=== PATIENT | male | born 1970 | race Hispanic/Latino ===

== ENCOUNTER 2018-03-02 12:40 | Outpatient (CLI) | payer BC ==
[2018-03-02 14:04] LABS: #Basophils 0.1 thou/uL (0.0-0.2); #Eosinphils 0.1 thou/uL (0.0-0.7); #Lymphocytes 1.9 thou/uL (1.20-3.40); #Monocytes 0.6 thou/uL (0.11-0.59); #Neutrophils 5.3 thou/uL (1.40-6.50); %Basophils 0.7 % (0.0-1.0); %Eosinophils 1.9 % (0.0-10.0); %Monocytes 7.1 % (0.0-10.0); %Neutrophils 66.2 % (42.0-75.0); Hemoglobin 16.6 g/dL (14.0-18.0); Mean Corpuscular HGB CONC 35.1 g/dL (32.0-36.0); Mean Corpuscular Hemoglobin 31.1 pg (27.0-31.0); Mean Corpuscular Volume 88.4 fl (80.0-94.0); Mean Platelet Volume 7.4 fL (7.4-10.4); Platelet Count 290 thou/uL (130-400); RBC Distribution Width 12.5 % (11.5-14.5); Red Blood Cell (RBC) Count 5.35 mill/uL (4.70-6.10)
[2018-03-02 14:25] LABS: Anion Gap 10 mmol/L (10-20); BUN (Urea Nitrogen) 12 mg/dL (8.9-20.6); Calc. Creatinine Clearance 0 mL/min (70-130); Calcium 9.6 mg/dL (7.8-10.44); Carbon Dioxide 27 mmol/L (22-29); Chloride 105 mmol/L (98-107); Estimated GFR-MDRD Greater than 90; Glucose 82 mg/dL (70-105); Potassium 3.9 mmol/L (3.5-5.1); Sodium 138 mmol/L (136-145)
== END 2018-03-02 12:41 | disposition home or self-care (01) ==
LOC: LABBT 12:40
PROVIDERS: ATTEND Surgery
DX: Z01.818 Encounter for other preprocedural examination (principal); K44.0 Diaphragmatic hernia with obstruction, without gangrene
CPT/HCPCS: 80048; 85025; 93005; 93010

== ENCOUNTER 2018-03-04 05:58 | Observation (INO) | payer BC ==
[2018-03-04] MEDS ORDERED: CEFAZOLIN/Water 2 GM/20 ML SYRINGE ONE (06:08)
[2018-03-04] MEDS ORDERED: Bupivacaine/Epinephrine 0.25% 30 ML VIAL ONE ×3 (06:34→09:28)
[2018-03-04] MEDS ORDERED: Fentanyl 100 MCG/2 ML VIAL ONE (06:51)
--- NOTE | 2018-03-04 10:43 | OP ---
DATE OF PROCEDURE: 03/04/2018 PREOPERATIVE DIAGNOSIS: 1. Acquired gastric outlet obstruction. 2. Severe dysphagia. 3. Moderate sized paraesophageal hiatal hernia. POSTOPERATIVE DIAGNOSES: 1. Acquired gastric outlet obstruction. 2. Severe dysphagia. 3. Moderate sized paraesophageal hiatal hernia. PROCEDURE: 1. Laparoscopic removal of lap band and subcutaneous port. 2. Laparoscopic hiatal hernia repair paraesophageal without fundoplication. 3. Chest tube. SURGEON: Butch Luo M.D. ANESTHESIA: General. ESTIMATED BLOOD LOSS: 50 mL. COMPLICATIONS: None. INDICATION: The patient is a 47-year-old male who presents with severe dysphagia. Barium swallow re vealed evidence of prolapse of his lap band as well as a moderate sized hiatal hernia. Risks and nilam efits of hiatal hernia repair and lap band removal were discussed. He gave consent. TECHNIQUE: The patient was taken to the operating room and placed supine on the table. After genera l anesthetic was obtained, an OG tube was used to decompress the stomach. The abdomen was shaved, pr epped, and draped in a sterile fashion. Left subcostal 5-mm Optiview trocar was placed in usual formerly [facility] ion. High-flow pneumoperitoneum was obtained. A 5 mm port is placed just above the umbilicus, 5-mm port is placed in the right lower quadrant, 5 mm port is placed just to the patient's right of the xi phoid, 8 mm port placed to the left of the xiphoid. The patient was placed in reverse Trendelenburg position. The 5 mm lateral subcostal port was switched out to a 12-mm port. Cautery was used to inc ise the scar tissue over the lap band cuff. The lap band is able to be unbuckled. Dissection is the n performed to dissect the lap band and stomach off of the liver. A liver retractor was then placed exposing the GE junction. Short gastric were taken down from mid body of stomach to left alejandra of lor phragm. Left alejandra, fundus of the stomach, angle of His was completely dissected without injury. The bare area of the stomach is on the gastrohepatic ligament is opened, the right alejandra found and medias tinum entered just medial to the right alejandra. A circumferential dissection of the esophagus is perfor med, allowing the GE junction, a pullback down into the abdominal cavity without tension. There was significant scar tissue in this area from previous lap band. The fundus of the stomach had been sewn over the top of the band. The sutures are cut and the fundus of the stomach, placed back in its pro per position. On dissection to the patient's left, the pleural space was entered secondary to severe scar tissue; however, the patient was hemodynamically stable during the entire procedure. Two Ethib ond sutures and the tie knot system were used to close the fascial defect posteriorly after a 38 boug ie was brought in and its tip left in the antrum of the stomach. Because of the patient's mid esopha milo that was seen on preoperative barium swallow the decision was made not to perform fundoplication in order to not increase his dysphagia. He had no preop gastroesophageal reflux symptoms. EGD scope was passed into the esophagus, stomach to the level of duodenum without obstruction. There was no i njury to the stomach. There is mild inflammatory change at the GE junction. No significant stenosis on passing the scope through the esophageal hiatus. EGD scope was used to decompress the stomach, i t was pulled and removed. The 12-mm port site is closed using a GraNee needle 0 Vicryl tie. The lap band tubing is cut and the lap band around the stomach is removed from this incision. It is able to be reformed on the back table in its entirety without missing piece. All port sites are infiltrated using local anesthetic. The liver retractor and all ports are removed under direct visualization wi thout injury, pneumoperitoneum was let down. The Vicryl sutures used to close the fascial defect fro m the 12-mm port site. Incision is opened over the port and the port is removed by dissecting off of the anterior abdominal wall. All incisions then closed using 3-0 Vicryl, 4-0 Monocryl, and Dermabon d. Upon attempting extubation, anesthesia notes difficulty with tidal volumes, decreased oxygen satu rations and his O2 sats started to drop. He was hemodynamically stable, not tachycardic with a chaz l blood pressure. He did not have breath sounds on the left. Decision was made to not wait for ches t x-ray and go ahead and place chest tube in the operating room. Left chest is prepped and draped in a sterile fashion. Incision was made at the level of the nipple and a 28 chest tube was placed in t he usual fashion, sewn in place using a heavy silk suture, connected to a Pleur-Evac. There was a ru sh of air upon placement. The patient had return and breath sounds. En route to recovery extubated in stable condition. The p atient en route to recovery in stable condition. All instrument counts, needle counts, lap counts ar e correct.
--- NOTE | 2018-03-04 11:28 | RAD ---
CHEST ONE VIEW: HISTORY: Chest tube placement. COMPARISON: None. FINDINGS: The cardiac silhouette is magnified by projection. Shallow inspiration accentuates pulmonary marking s. Left thoracostomy tube over the left lateral chest descends to the left posterior medial lung bas e. No significant pneumothorax is apparent on this portable semiupright exam. The mediastinum is mi dline. IMPRESSION: Left thoracostomy tube in good radiographic position. POS: [facility]
[2018-03-04] MEDS ORDERED: Promethazine HCl 25 MG/ML VIAL IM PRN (11:54)
[2018-03-04] MEDS ORDERED: Dextrose 5% in Water 1,000 ML IV PRN (11:54)
[2018-03-04] MEDS ORDERED: Ondansetron HCl/PF 4 MG/2 ML Vial IVP PRN (11:54)
[2018-03-04] MEDS ORDERED: Dextrose 50% Abboject 50 ML SYRINGE SLOW IVP PRN (11:54)
[2018-03-04] MEDS ORDERED: PROVENTIL INHALER 6.7 G (200 INHALATIONS) INH PRN (11:54)
[2018-03-04] MEDS ORDERED: hydrALAZINE 20 MG/ML VIAL SLOW IVP PRN (11:54)
[2018-03-04] MEDS: Sodium Chloride 0.9% 1,000 ML IV SCH ×2 (12:05→21:11)
[2018-03-04] MEDS: Hydrocodone-Acetamin 15 ML UDCUP PO PRN ×2 (13:00→21:22)
[2018-03-04 14:19] VITALS: BMI 36.3
[2018-03-04] MEDS ORDERED: PROPOFOL 200 MG/20 ML VIAL ONE (14:24)
[2018-03-04] MEDS ORDERED: Dexamethasone 20 MG/5 ML VIAL ONE (14:24)
[2018-03-04] MEDS ORDERED: Ketorolac Tromethamine 30 MG/ML VIAL ONE (14:24)
[2018-03-04] MEDS ORDERED: Glycopyrrolate 0.2 MG/ML 5 ML SYRINGE ONE (14:24)
[2018-03-04] MEDS ORDERED: Ondansetron HCl/PF 4 MG/2 ML Vial ONE (14:24)
[2018-03-04] MEDS ORDERED: Lidocaine 1% PF 5 ML VIAL ONE (14:24)
[2018-03-04] MEDS ORDERED: Vecuronium 10 MG VIAL ONE (14:24)
[2018-03-05 05:21] LABS: #Lymphocytes 1.9 thou/uL (1.20-3.40); #Monocytes 1.2 thou/uL (0.11-0.59); #Neutrophils 11.3 thou/uL (1.40-6.50); %Basophils 0.1 % (0.0-1.0); %Eosinophils 0.2 % (0.0-10.0); %Lymphocytes 13.1 % (21.0-51.0); %Neutrophils 78.5 % (42.0-75.0); Hemoglobin 14.8 g/dL (14.0-18.0); Mean Corpuscular HGB CONC 33.4 g/dL (32.0-36.0); Mean Corpuscular Hemoglobin 30.4 pg (27.0-31.0); Mean Corpuscular Volume 91.2 fL (78.0-98.0); Mean Platelet Volume 7.8 fL (7.4-10.4); Platelet Count 288 thou/uL (130-400); RBC Distribution Width 12.5 % (11.5-14.5); Red Blood Cell (RBC) Count 4.86 mill/uL (4.70-6.10); White Blood Cell (WBC) Count 14.4 thou/uL (4.8-10.8)
[2018-03-05] MEDS: Sodium Chloride 0.9% 1,000 ML IV SCH ×2 (06:48→16:54)
--- NOTE | 2018-03-05 08:02 | RAD ---
SINGLE VIEW OF THE CHEST: COMPARISON: 03/04/18. HISTORY: Pleural space entered on hiatal hernia repair. FINDINGS: A single view of the chest shows a normal-size cardiomediastinal silhouette. There is a left-sided c hest tube. Opacity is seen in the left lung base which could represent atelectasis or a contusion. No pneumothorax is seen. IMPRESSION: Stable left lower lobe opacity may represent atelectasis or a pulmonary contusion. POS: [facility]
[2018-03-05] MEDS ORDERED: Pantoprazole 40 MG VIAL IVP SCH (09:08)
[2018-03-05] MEDS: Hydrocodone-Acetamin 15 ML UDCUP PO PRN (14:28)
--- NOTE | 2018-03-05 15:13 | RAD ---
SINGLE VIEW OF THE CHEST: Comparison: 03-05-18 at 6:45 a.m. History: Pneumothorax. Follow up exam. FINDINGS: Single view chest shows a normal sized cardiomediastinal silhouette. There is a left sided chest tube . No pneumothorax is visualized. Opacity is seen in the left lower chest which may represent a contus ion or atelectasis. No changes has occurred compared to the prior exam. IMPRESSION: Stable exam. POS: [facility]
[2018-03-05] MEDS ORDERED: Ibuprofen 600 MG TAB PO PRN (19:39)
[2018-03-05] MEDS ORDERED: traMADol HCl 50 MG TAB PO PRN ×2 (19:39)
[2018-03-05] MEDS ORDERED: Acetaminophen 500 MG TAB PO PRN (19:39)
[2018-03-05 21:17] VITALS: BP 132/82; TEMP 98.7
--- NOTE | 2018-03-06 10:13 | PRG ---
DATE OF SERVICE: 03/05/2018 SUBJECTIVE: Mr. Ajith Pineda is doing well today. OBJECTIVE: VITAL SIGNS: 98.4 degrees, 85, 140/90, respiratory rate 16. LUNGS: Clear to auscultation. CARDIAC: Regular rate and rhythm without murmur or gallop. ABDOMEN: Soft, nontender. IMAGING: Chest x-ray is normal this afternoon after waterseal for 6 hours. ASSESSMENT AND PLAN: Chest tube was removed. The patient is being discharged home today. Ibuprofen , Tylenol p.r.n. pain, Ultram prescription #22 refills #20 quantity with 2 refills given. He will fo llow up with Dr. Luo about 10 days. He will call sooner if there are any problems. He is instru cted to remove his dressing over his left chest 24-48 hours and may wash with soap and water, bath or shower and place antibiotic ointment, gauze or leave open where a scab can form.
== END 2018-03-05 20:15 | disposition home or self-care (01) ==
LOC: SDC 05:58 → SURG B 09:06
PROVIDERS: ADMIT Surgery; ATTEND Surgery
PROC: 0DP64CZ Removal of Extraluminal Device from Stomach, Percutaneous Endoscopic Approach (ICD-10-PCS; principal; 2018-03-04)
PROC: 0BQT4ZZ Repair Diaphragm, Percutaneous Endoscopic Approach (ICD-10-PCS; 2018-03-04)
PROC: 0W9B00Z Drainage of Left Pleural Cavity with Drainage Device, Open Approach (ICD-10-PCS; 2018-03-04)
DX: K95.09 Other complications of gastric band procedure (principal); K31.1 Adult hypertrophic pyloric stenosis; K44.9 Diaphragmatic hernia without obstruction or gangrene; E66.01 Morbid (severe) obesity due to excess calories; Z79.899 Other long term (current) drug therapy
CPT/HCPCS: 36415; 71045; 85025; 96361; 96374; G0378; J1100; J1885; J2001; J2405; J2550; J2704; J3010

== ENCOUNTER 2018-07-04 01:01 | Emergency (ER) | payer BC ==
[2018-07-04] MEDS ORDERED: Lidocaine 1% PF 5 ML VIAL ONE (01:16)
[2018-07-04] MEDS ORDERED: HYDROcodone/Acetaminophen 5/325 mg Tablet ONE (01:28)
[2018-07-04] MEDS ORDERED: Bacitracin Zinc 1 Packet ONE (01:29)
== END 2018-07-04 01:45 | disposition home or self-care (01) ==
LOC: SCSER 01:01
DX: L02.214 Cutaneous abscess of groin (principal)
CPT/HCPCS: 10060; J2001

== ENCOUNTER 2019-01-25 16:00 | Inpatient (IN) | payer BC ==
[2019-01-25 16:30] VITALS: BMI 37.0
[2019-02-01] MEDS ORDERED: Heparin 5,000 UNITS/ML VIAL ONE (06:35)
[2019-02-01] MEDS ORDERED: Fentanyl 100 MCG/2 ML VIAL ONE ×3 (06:44→09:25)
[2019-02-01] MEDS ORDERED: Famotidine/PF 20 mg/2ml Vial ONE (06:44)
[2019-02-01] MEDS ORDERED: Bupivacaine/Epinephrine 0.25% 30 ML VIAL ONE (07:15)
[2019-02-01] MEDS ORDERED: Midazolam HCl 2 mg/2 ml Vial ONE (07:25)
[2019-02-01] MEDS ORDERED: Ondansetron HCl/PF 4 MG/2 ML Vial IVP PRN (08:31)
[2019-02-01] MEDS ORDERED: HYDROmorphone 2 MG/ML VIAL SLOW IVP PRN (08:31)
[2019-02-01] MEDS ORDERED: Promethazine HCl 25 MG/ML VIAL IM PRN ×3 (08:31→10:55)
[2019-02-01] MEDS ORDERED: Promethazine HCl 25 MG/ML VIAL SLOW IVP PRN (08:31)
[2019-02-01] MEDS ORDERED: Meperidine HCl/PF 25 MG/ML VIAL SLOW IVP PRN (08:31)
[2019-02-01] MEDS ORDERED: Ondansetron PF 4 MG/2 ML Vial IVP PRN ×2 (09:52→10:55)
[2019-02-01] MEDS ORDERED: diphenhydrAMINE 25 MG CAP PO PRN (09:52)
[2019-02-01] MEDS ORDERED: diphenhydrAMINE 50 MG/ML VIAL IVP PRN ×2 (09:52→10:55)
[2019-02-01] MEDS ORDERED: HYDROmorphone 10 mg/100 ml CADD IVPB PRN (09:52)
[2019-02-01] MEDS ORDERED: Zolpidem Tartrate 5 MG TAB PO PRN (09:52)
[2019-02-01] MEDS ORDERED: Naloxone HCl 0.4 mg/ml Vial IV PRN (09:52)
[2019-02-01] MEDS ORDERED: diphenhydrAMINE 50 MG/ML VIAL IM PRN (09:52)
[2019-02-01] MEDS ORDERED: Communication Order-Pharmacy FS SCH (10:00)
[2019-02-01] MEDS ORDERED: D5 1/2 NS w/20 mEq KCL 1,000 ML ONE (10:09)
[2019-02-01] MEDS ORDERED: Dextrose 50% Abboject 50 ML SYRINGE SLOW IVP PRN (10:55)
[2019-02-01] MEDS ORDERED: hydrALAZINE 20 MG/ML VIAL SLOW IVP PRN (10:55)
[2019-02-01] MEDS ORDERED: Hydrocodone-Acetamin 15 ML UDCUP PO PRN (10:55)
[2019-02-01] MEDS ORDERED: Dextrose 5% in Water 1,000 ML IV PRN (10:55)
[2019-02-01] MEDS ORDERED: PROVENTIL INHALER 6.7 G (200 INHALATIONS) INH PRN (10:55)
[2019-02-01] MEDS: Acetaminophen 1,000 MG in Premix Bag 1 BAG IVPB SCH ×3 (13:16→22:21)
[2019-02-01] MEDS: D5 1/2 NS w/20 mEq KCL 1,000 ML IV SCH ×2 (13:16→16:42)
[2019-02-01] MEDS ORDERED: Lidocaine 1% PF 5 ML VIAL ONE (13:23)
[2019-02-01] MEDS ORDERED: Rocuronium Bromide 10 MG/ML (10ML VIAL) ONE (13:23)
[2019-02-01] MEDS ORDERED: PROPOFOL 200 MG/20 ML VIAL ONE (13:23)
[2019-02-01] MEDS ORDERED: Ondansetron PF 4 MG/2 ML Vial ONE (13:23)
[2019-02-01] MEDS ORDERED: Ketorolac Tromethamine 30 MG/ML VIAL ONE (13:23)
[2019-02-01] MEDS ORDERED: Glycopyrrolate 0.2 MG/ML 5 ML SYRINGE ONE (13:23)
[2019-02-01] MEDS ORDERED: Metoclopramide HCl 10 MG/2 ML VIAL ONE (13:23)
[2019-02-01] MEDS ORDERED: Dexamethasone 20 MG/5 ML VIAL ONE (13:23)
--- NOTE | 2019-02-01 13:47 | OP ---
DATE OF PROCEDURE: 02/01/2019 PREOPERATIVE DIAGNOSIS: Morbid obesity with a body mass index of 40. POSTOPERATIVE DIAGNOSIS: Morbid obesity with a body mass index of 40. PROCEDURE PERFORMED: 1. Laparoscopic gastric sleeve. 2. Esophagogastroduodenoscopy. ANESTHESIA: General. ESTIMATED BLOOD LOSS: Minimal. COMPLICATIONS: None. SPECIMEN: Stomach. FINDINGS: Normal postoperative EGD that is a laparoscopic gastric sleeve with [place] staple line reinforcements and 38-[place] bougie. DESCRIPTION OF PROCEDURE: The patient was taken to the operating room and laid supine on the operating room table. After general anesthetic was obtained, arms and legs were double strapped to bariatric table. OG tube was used to decompress the stomach. The abdomen was prepped and draped in a sterile fashion. Left subcostal 5 mm Optiview trocar was placed in the usual fashion without injury and high flow pneumoperitoneum was obtained. Two upper abdominal 12 mm ports as well as right subcostal 5 mm port were placed under direct visualization. Darrel retractor was brought in through a 5 mm incision at the xiphoid, used to raise the liver off the GE junction. Short gastric was taken down midbody of the stomach, left alejandra of diaphragm. The patient had prior hiatal hernia repair without fundoplication. Left alejandra, posterior fundus, and angle of His were completely dissected. Short gastrics were taken down to a distance of 6 cm proximal to the pylorus. Multiple loads of an [place] stapling device were used to perform the sleeve. The first was fired up at a distance of 6 cm proximal to the pylorus, angled up towards the incisura. Care was taken to avoid being too close to the incisura. Multiple loads were then fired up along the bougie. Stomach was completely transected at the angle of His. Stomach was removed from the left abdominal incision. This fascial defect was closed using GraNee needle and 0 Vicryl tie. All port sites were infiltrated using local anesthetic. A few bleeders on the distal staple line were clipped using laparoscopic clip. EGD scope was passed through esophagus and stomach to the level of duodenum without obstruction. There was no stricture at the incisura. There was no bleeding or air leakage through the staple line. EGD scope was used to decompress the stomach, pulled and removed. Darrel retractor was removed under direct visualization without bleeding. All ports were removed without bleeding, and pneumoperitoneum was let down. Vicryl was used to close the fascial defect from the left abdominal incisions. All incisions were closed using 4-0 Monocryl and Dermabond. The patient was sent to Recovery in stable condition. All instrument counts, needle counts, and lap counts were correct. Job ID: [id number]
[2019-02-01] MEDS ORDERED: Enoxaparin Sodium 40 MG/0.4 ML SYRINGE SC SCH (21:00)
[2019-02-02] MEDS: D5 1/2 NS w/20 mEq KCL 1,000 ML IV SCH ×2 (03:04→10:37)
[2019-02-02] MEDS: Acetaminophen 1,000 MG in Premix Bag 1 BAG IVPB SCH (05:12)
[2019-02-02 06:08] LABS: #Lymphocytes 1.8 thou/uL (1.20-3.40); #Monocytes 1.1 thou/uL (0.11-0.59); #Neutrophils 10.7 thou/uL (1.40-6.50); %Basophils 0.2 % (0.0-1.0); %Eosinophils 0.2 % (0.0-10.0); %Lymphocytes 13.3 % (21.0-51.0); %Monocytes 7.8 % (0.0-10.0); %Neutrophils 78.6 % (42.0-75.0); Hemoglobin 16.8 g/dL (14.0-18.0); Mean Corpuscular Volume 88.7 fL (78.0-98.0); Mean Platelet Volume 8.4 fL (7.4-10.4); Platelet Count 299 thou/uL (130-400); RBC Distribution Width 12.4 % (11.5-14.5); Red Blood Cell (RBC) Count 5.43 mill/uL (4.70-6.10); White Blood Cell (WBC) Count 13.6 thou/uL (4.8-10.8)
[2019-02-02 06:26] LABS: Anion Gap 12 mmol/L (10-20); BUN (Urea Nitrogen) 4 mg/dL (8.9-20.6); Calc. Creatinine Clearance 191 mL/min (70-130); Carbon Dioxide 25 mmol/L (22-29); Chloride 102 mmol/L (98-107); Estimated GFR-MDRD Greater than 90; Glucose 128 mg/dL (70-105); Potassium 3.8 mmol/L (3.5-5.1); Sodium 135 mmol/L (136-145)
[2019-02-02] MEDS ORDERED: Pantoprazole 40 MG VIAL IVP SCH (09:00)
--- NOTE | 2019-02-02 09:24 | DIS ---
DATE OF ADMISSION: 02/01/2019 DATE OF DISCHARGE: 02/02/2019 ADMIT DIAGNOSIS: Morbid obesity. DISCHARGE DIAGNOSIS: Morbid obesity. PROCEDURE PERFORMED: Laparoscopic sleeve gastrectomy by Dr. Luo without complication. CONDITION ON DISCHARGE: Improved. HOSPITAL COURSE: On postop day #1, the patient is doing well. He is ambulatory. He is tolerating liquids. His vital signs are stable. He is being discharged home. He will follow up in my office in 2 weeks. Prescriptions for Lortab elixir and Zofran sent to [facility]. He already has Protonix that he will take at home. Job ID: [id number]
[2019-02-02] MEDS ORDERED: Hydrocodone-Acetamin 15 ML UDCUP PO PRN (09:52)
[2019-02-02 11:34] VITALS: BP 145/90; TEMP 97.8
== END 2019-02-02 14:11 | disposition home or self-care (01) | DRG 621 ==
LOC: SURG A 02-01 06:07 → SURG B 02-01 11:20
PROVIDERS: ADMIT Surgery; ATTEND Surgery
PROC: 0DB64Z3 Excision of Stomach, Percutaneous Endoscopic Approach, Vertical (ICD-10-PCS; principal; 2019-02-01)
PROC: 0DJ08ZZ Inspection of Upper Intestinal Tract, Via Natural or Artificial Opening Endoscopic (ICD-10-PCS; 2019-02-01)
DX: E66.01 Morbid (severe) obesity due to excess calories (principal); Z90.89 Acquired absence of other organs; Z68.41 Body mass index [BMI] 40.0-44.9, adult
CPT/HCPCS: 36415; 80048; 85025; 88307; 88312; 94760; C9113; J0131; J0690; J1100; J1644; J1650; J1885; J2001; J2250; J2405; J2704; J2765; J3010; S0028